=== PATIENT | female | born 1955 | race Caucasian/White ===

== ENCOUNTER 2020-07-20 15:58 | Observation (INO) | payer OTHER ==
[~2020-07-20] VITALS: Ht 152.4 cm; Wt 72.7 kg
[2020-07-20 17:15] VITALS: BP 152/87
[2020-07-20] MEDS ORDERED: CLONAZEPAM 0.50.5 M1 PO (19:23)
--- NOTE | 2020-07-20 19:38 | NUR ---
ASSUMED CARE OF PT AT APPROX 1515 FROM [facility] D/T NSTEMI. ADMISSION COMPLETE. PT A&OX4, NO COMPLAINTS OF PAIN. ORDERS RECEIVED AND IMPLEMENTED. REPORTED OFF TO NIGHT NURSE.
[2020-07-20 20:05] VITALS: BP 188/106
[2020-07-20] MEDS ORDERED: PROAIR HFA8.5 GM INH (22:36)
[2020-07-20] MEDS ORDERED: ADVAIR 250-501 EACH INH (22:37)
[2020-07-20] MEDS ORDERED: CHILDREN'S ZYRT10 M1 PO (22:40)
[2020-07-20] MEDS ORDERED: ADULT ASPIRIN R81 MG PO (22:40)
[2020-07-20] MEDS ORDERED: CATAPRES-TTS 11 EACH TRANSDERM (22:43)
[2020-07-20] MEDS ORDERED: GABAPENTIN800 M1 PO (22:45)
[2020-07-20] MEDS ORDERED: CLONIDINE HCL0.1 MG PO (22:45)
[2020-07-20] MEDS ORDERED: LEVO-T25 MCG PO (22:46)
[2020-07-20] MEDS ORDERED: LISINOPRIL20 MG PO (22:47)
[2020-07-20] MEDS ORDERED: MAGNESIUM250 M1 PO (22:50)
[2020-07-20] MEDS ORDERED: METOPROLOL SUCC25 M1 PO (22:52)
[2020-07-20] MEDS ORDERED: CRESTOR40 MG PO (22:54)
[2020-07-20] MEDS ORDERED: PROCHLORPERAZINE5 M2 PO (22:54)
[2020-07-20] MEDS ORDERED: ZANAFLEX4 M1 PO (22:55)
[2020-07-20] MEDS ORDERED: ULTRAM50 MG PO (22:56)
[2020-07-20] MEDS ORDERED: TRIAMCINOLONE A80 G2 TOP (23:02)
[2020-07-20] MEDS ORDERED: VALACYCLOVIR1000 MG PO (23:04)
[2020-07-20] MEDS ORDERED: ZYRTEC10 M5 PO (23:06)
[2020-07-20 23:17] VITALS: BP 129/87
[2020-07-21] VITALS (15 sets, daily range): BP systolic 122–158; BP diastolic 70–91
--- NOTE | 2020-07-21 01:16 | NUR ---
[address] KAM. ORDERS RECIEVED. STAT EKG ORDERED AND TROPONIN DRAWN. REVIEW HISTORY WITH DRHelen 2019 DR KAM CALLED TO CHECK ON TROP. INFORMED OF RESULTS AND ELEVATED BP 188/106. REVIEWED MEDICATIONS WITH DR. KAM. ORDERS RECIEVED. 0015 BP NOW 129/87. PEREZ COLUNGA NOTIFIED OF HOME MED LIST AND HISTORY. SHE WILL REVIEW MEDICATION. PATIENT SLEEPING WITHOUT COMPLAINTS AT THIS TIME. DENIES HAVING SYNCOPE.
[2020-07-21 05:51] LABS: HEMATOCRIT 38.3 % (37.0-47.0); HEMOGLOBIN 13.2 gm/dL (12.0-15.0); MCH 31.4 pg (26.0-34.0); MCHC 34.4 g/dL (28.0-37.0); MCV 91.4 fL (80.0-100.0); RBC 4.19 mil/uL (4.20-5.00); RDW 13.2 % (10.5-14.5); WBC 12.3 thou/uL (4.0-11.0)
[2020-07-21 06:15] LABS: CALCIUM 8.9 mg/dL (8.5-10.1); CREATININE 1.1 mg/dL (0.6-1.0); POTASSIUM 3.3 mmol/L (3.5-5.1)
[2020-07-21 06:20] LABS: TROPONIN-I 3.41 ng/mL (<0.06)
--- NOTE | 2020-07-21 06:38 | NUR ---
SLEPT MOST OF SHIFT. DENIES COMPLAINTS OF DIZZINESS, CHEST PAIN OR SHORTNESS OF AIR. WORKING ON GOALS AND PLAN OF CARE FOR NOC. 0500 PATIENT HAS NOT VOIDED. ASSISTED UP TO BATHROOM WITHOUT DIZZINESS AND DID NOT VOID. BLADDER SCAN SHOWS 29ML IN BLADDER. NOTIFIED PEREZ UNIX ANALYST AND ORDERS FOR FLUID BOLUS GIVEN. STARTED FLUID BOLUS PAST CHECKING PATIENT DOES NOT HAVE A HISTORY OF CHF. CONTINUE TO ASSES CLOSELY.
--- NOTE | 2020-07-21 07:13 | EKG ---
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 : 1955 Requested By: Gregory Dove Order Number: [id number] MD: Mike Green Measurements Intervals [place] Rate: 79 P: 26 IL: 115 QRS: 22 QRSD: 81 T: 29 QT: 432 QTc: 496 Interpretive Statements Sinus rhythm Borderline short IL interval Abnormal R-wave progression, early transition Borderline prolonged QT interval No previous ECG available for comparison Electronically Signed On 07-21-2020 7:12:58 CDT by Mike Green [email or web address] <ELECTRONICALLY SIGNED> By: Mike Green MD, [facility] 07/21/20711 49 1950 Mike Green MD, FACC /EPI
[2020-07-21 07:48] LABS: INR 1.11
--- NOTE | 2020-07-21 08:00 | EKG ---
[place] [address] [facility] [address] ELECTROCARDIOGRAM REPORT Name: HECTOR ANDERSON Room #: 218-[facility].R.#: [id number] Admission: 07/20/20 Attend Phys: Uriel Monsalve MD Discharge: Date of : 59 Report #: [id number] 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 : 1955 Requested By: Gregory Dove Order Number: [id number] MD: Everett Abbott Measurements Intervals [place] Rate: 82 P: 41 OR: 130 QRS: 20 QRSD: 79 T: 32 QT: 408 QTc: 477 Interpretive Statements Sinus rhythm Borderline T abnormalities, anterior leads Compared to ECG 07/20/2020 19:50:35 T-wave abnormality now present Electronically Signed On 07-21-2020 8:00:29 CDT by Everett Abbott [email or web address] <ELECTRONICALLY SIGNED> By: Everett Abbott MD, [facility] 07/21/20 0800 Everett Abbott MD, [facility] /EPI
[2020-07-21 08:03] LABS: CHOLESTEROL 246 mg/dL (<200); HDL CHOLESTEROL 46 mg/dL (>40); LDL CHOLESTEROL 157 mg/dL (<100); TC:HDL 5.3 Ratio (Not establshd); TRIGLYCERIDE 218 mg/dL (<150); VLDL 44 mg/dL (<40)
--- NOTE | 2020-07-21 09:37 | 2DMMODE ---
[facility] [place] [place] [address] 2 D/M-MODE ECHOCARDIOGRAM Name: HECTOR ANDERSON Room #: 218-[address] [facility] M.R.#: [id number] Admission: 07/20/20 Attend Phys: Uriel Monsalve MD Discharge: Date of : 59 Report #: [id number] THIS REPORT FOR: cc: LB - No family physician/PCP LB - No family physician/PCP Everett Abbott MD [facility] ~ APPROVED REPORT Study performed: 07/21/2020 07:28:20 EXAM: Comprehensive 2D, Doppler, and color-flow Echocardiogram Patient Location: Bedside Room #: 218 Status: routine BSA: 1.70 HR: 75 bpm BP: 122/83 mmHg Rhythm: NSR Other Information Study Quality: Adequate Indications Chest Pain Hx: Syncope, HTN urgency, HLP 2D Dimensions RVDd: 24.38 mm IVSd: 10.26 (7-11mm) LVOT Diam: 20.09 (18-24mm) LVDd: 47.60 mm PWd: 9.58 (7-11mm) Ascending Ao: 34.07 (22-36mm) LVDs: 23.37 (25-40mm) Left Atrium: 29.96 (27-40mm) Aortic Root: 33.53 mm Volumes Left Atrial Volume (Systole) Single Plane 4CH: 27.66 mL Single Plane 2CH: 39.09 mL LA ESV Index: 20.00 mL/m2 Aortic Valve AoV Peak Adeel.: 1.56 m/s AO Peak Gr.: 9.67 mmHg LVOT Max P.18 mmHg LVOT Max V: 1.24 m/s [facility] [address] [address] 2 D/M-MODE ECHOCARDIOGRAM Name: HECTOR ANDERSON Room #: 218-P [facility] IN [facility]#: [id number] Admission: 07/20/20 Attend Phys: Uriel Monsalve, Discharge: Date of : 59 Report #: [id number] CATHY Vmax: 2.53 cm2 Mitral Valve E/A Ratio: 0.6 MV Decel. Time: 338.04 ms MV E Max Adeel.: 0.64 m/s MV A Adeel.: 1.05 m/s MV PHT: 98.03 ms IVRT: 92.27 ms Pulmonary Valve PV Peak Adeel.: 0.90 m/s PV Peak Gr.: 3.27 mmHg Pulmonary Vein P Vein S: 0.69 m/s P Vein A: 0.35 m/s P Vein D: 0.40 m/s P Vein A Dur.: 124.6 msec P Vein S/D Ratio: 1.73 Tricuspid Valve TR Peak Adeel.: 2.38 m/s RAP Estimate: 5.00 mmHg TR Peak Gr.: 22.64 mmHg PA Pressure: 28.00 mmHg Left Ventricle The left ventricle is normal size. There is normal LV segmental wall motion. There is normal left ventricular wall thickness. The left ventricular systolic function is normal. LVEF is 65-70%. Mild diastolic dysfunction Right Ventricle The right ventricle is normal size. The right ventricular systolic function is normal. Atria The left atrium size is normal. The right atrium size is normal. Aortic Valve The aortic valve is not well visualized. Trace aortic regurgitation. There is no aortic valvular stenosis. Mitral Valve The mitral valve is normal in structure. There is no mitral valve regurgitation noted. No evidence of mitral valve stenosis. Tricuspid Valve [facility] [address] [address] 2 D/M-MODE ECHOCARDIOGRAM Name: KHLOE ANDERSONSA Andino Room #: 218-P [facility] IN [facility].#: [id number] Admission: 07/20/20 Attend Phys: Uriel Monsalve, Discharge: Date of : 59 Report #: [id number] The tricuspid valve is normal in structure. Trace tricuspid regurgitation. Estimated PAP 25-30mmHg Pulmonic Valve The pulmonary valve is normal in structure. There is no pulmonic valvular regurgitation. Great Vessels The aortic root is normal in size. The ascending aorta is normal in size. IVC is normal in size and collapses >50% with inspiration. Pericardium There is no pericardial effusion. <Conclusion> The left ventricular systolic function is normal. There is normal LV segmental wall motion. LVEF is 65-70%. Mild diastolic dysfunction The aortic valve is not well visualized. Trace aortic regurgitation, no stenosis. The mitral valve is normal in structure. No mitral valve regurgitation. Trace tricuspid regurgitation. Estimated pulmonary artery pressure of 25-30mmHg There is no pericardial effusion. <ELECTRONICALLY SIGNED> By: Everett Abbott MD, FACC 07/21/20936 6 6 Everett Abbott MD, FACC /INF
--- NOTE | 2020-07-21 12:54 | CATHLAB ---
[facility] [address] [facility] [address] INVASIVE PROCEDURE REPORT Name: HECTOR ANDERSON Room #: 218-P ADM Renee Sexton#: [id number] Admission: 07/20/20 Attend Phys: Uriel Monsalve MD Discharge: Date of : 59 Report #: [id number] THIS REPORT FOR: cc: FAM - No family physician/PCP FAM - No family physician/PCP Gregory Dove MD [facility] ~ APPROVED REPORT Study performed: 07/21/2020 10:38:44 Patient Details Patient Status: In-Patient Room #: 218 The patient is a 65 year-old female Event Personnel Gregory Dove Audiology Doctor, Bryan Shen RTR ScrubDiana Jordan RTR Monitor, Rosie Hebert RN communications department head Performed Art Access - R femoral artery* 47065 Initial Mod Sed Same Phys/QHP Gr5y [id number] 31091 Mod Sed Same Phys/QHP Ea [id number] Hemostasis w/ Mynx Abdominal Aortography [id number] Left Heart Cath w/or w/o Coronaries [id number] [facility] Indication Palpitations, Syncope, Chest pain Procedure Narrative The Right Groin^ was infiltrated with 1% Lidocaine subcutaneous anesthesia. A PINNACLE 6FR Sheath #[id number] sheath was inserted into the RFA^. Coronary angiography was performed using coronary diagnostic catheters. The right coronary system was accessed and visualized with a JR4 catheter. The left coronary system was accessed and visualized with a JL4 catheter. The left ventricle was accessed and visualized with a PIGTAIL catheter. Left ventriculogram was performed in 30 degree projection. An aortogram of the abdominal aorta was performed. Closure device was deployed with a 6 Fr MYNXGRIP 6/7F #[id number]. Hemostasis was obtained with manual pressure following sheath removal without any complications. The patient tolerated the procedure well and there were no complications associated with the procedure. There was no hematoma. Intraoperative Conscious Sedation [facility] [address] [place] [address] INVASIVE PROCEDURE REPORT Name: HECTOR ANDERSON Room #: 218-P [facility] IN ..#: [id number] Admission: 07/20/20 Attend Phys: Uriel Monsalve, Discharge: Date of : 59 Report #: [id number] Sedation start time: 1131 Case end Time: 1201 Fentanyl 50 mcg Versed 0.5 mg Fluoro Time: 1.40 minutes Dose: DAP 1956.50 cGycm2 259 mGy Contrast Type and Amount: Visipaque 100 ml Hemodynamics The aortic pressure is 170/87 mmHg with a mean of 112 mmHg. The left ventricular pressure is 191/3 mmHg with a mean of mmHg. The left ventricular end diastolic pressure is 12 mmHg. Conclusion #1. Hyperdynamic LV function EF 65 to 70%. #2 abdominal aortogram is widely patent there is no evidence of aneurysm or significant stenosis. Renal arteries appear to be patent patient has significant refractory hypertension does not appear to be on the basis of renal artery stenosis. #3 coronary anatomy shows wide patency there is no occlusive disease noted. A short left main a right dominant system. LAD and circumflex are widely patent. #4 dominant right coronary artery widely patent. Recommendations and plan: Continue aggressive risk factor modification. Blood pressure control is paramount here. Significantly hypertensive at initiation of this procedure. Responded to IV hydralazine. Etiology of troponin elevation is unclear. <ELECTRONICALLY SIGNED> By: Gregory Dove MD, FACC 07/21/20 1254 1254 1254 Gregory Dove MD, FACC /INF
[2020-07-21] MEDS ORDERED: NORVASC5 MG PO (13:01)
--- NOTE | 2020-07-21 16:21 | NUR ---
ASSUMED CARE OF PT AT SHIFT CHANGE. ASSESSMENTS CHARTED. MEDS GIVEN PER JUN. PT A&OX4, NO C/O PAIN. CATH PROCEDURE COMPLETE, NO INTERVENTIONS. R GROIN SITE CDI, NO BRUISING OR HEMATOMA. BEDREST COMPLETE. NO C/O OF DISTRESS OR DISCOMFORT. DISCHARGE ORDERS AND INSTRUCTIONS COMPLETE. IV AND TELE DC'D. PT TAKEN TO ENTRANCE VIA WHEELCHAIR TO WAITING IN CAR.
== END 2020-07-21 16:16 | disposition home or self-care (01) ==
LOC: 2N 15:58
PROVIDERS: Hospitalist; Nurse Practitioner Adult Health; ADMIT Internal Medicine; ATTEND Internal Medicine
DX: I10 Essential (primary) hypertension (principal); R55 Syncope and collapse; E03.9 Hypothyroidism, unspecified; E78.00 Pure hypercholesterolemia, unspecified; G89.29 Other chronic pain; R79.89 Other specified abnormal findings of blood chemistry; I73.00 Raynaud's syndrome without gangrene; Z79.82 Long term (current) use of aspirin; Z79.899 Other long term (current) drug therapy; Z87.891 Personal history of nicotine dependence

== ENCOUNTER 2020-10-01 15:40 | Inpatient (IN) | payer OTHER ==
[2020-10-01] VITALS (18 sets, daily range): BP systolic 130–172; BP diastolic 78–97
[~2020-10-01] VITALS: Ht 157.5 cm; Wt 79.4 kg
--- NOTE | ~2020-10-01 | HC ---
[facility] [place] [address] CONSULTATION Name: HECTOR ANDERSON Room #: [facility]-P ADM IN M.R.#: [id number] Admission: 10/01/20 Attend Phys: Uriel Monsalve MD Discharge: Date of : 59 Report #: [id number] THIS REPORT FOR: cc: LB Duvall family physician/PCP LB Duvall family physician/PCP Joan Chang MD ~ DOC #: [id number] Joan Chang MD REASON FOR CONSULTATION: Elevated creatinine. HISTORY OF PRESENT ILLNESS: A 65-year-old who was transferred from [facility] because of nausea, vomiting and diarrhea. She reported no symptoms for the last week or so. She was prescribed some Cipro, Flagyl, nausea medications. She continued to have those issues and reported to the Emergency Room and was found to have an elevated creatinine. She was never told that she had kidney problems before. Creatinine at the other facility was in the 2 range; however, creatinine this morning showed that her renal function has improved with IV hydration. She is known to have prediabetes. She is also known to have hypertension and her blood pressure on arrival to our facility was extremely elevated. I was consulted to manage her acute kidney injury. She denies any prior knowledge of kidney disease. We do not have any previous values on her when it comes to her kidney function. PAST MEDICAL HISTORY: 1. Hypertension. 2. Hypothyroidism. 3. Hyperlipidemia. 4. Anxiety. 5. Raynaud's phenomena. 6. Chronic back pain. PAST SURGICAL HISTORY: 1. Bilateral carpal tunnel. 2. . 3. Hysterectomy. 4. Appendectomy. SOCIAL HISTORY: She is a former smoker. No drug or alcohol abuse. FAMILY HISTORY: Hypertension. ALLERGIES: None. MEDICATIONS: 1. ____. [facility] [address] [place] [address] CONSULTATION Name: KHLOE ANDERSONSA Andino Room #: 241-P [facility]#: [id number] Admission: 10/01/20 Attend Phys: Uriel Monsalve MD Discharge: Date of : 59 Report #: [id number] 2. Metoprolol. 3. Amlodipine. 4. Lisinopril. 5. Levothyroxine. REVIEW OF SYSTEMS: GENERAL: No fever or chills. CARDIOVASCULAR: No chest pain or palpitation. PULMONARY: No cough or hemoptysis. GASTROINTESTINAL: Significant for nausea, vomiting and diarrhea. GENITOURINARY: No frequency, no urgency. NEUROLOGIC: No headache, no dizziness, no syncope. PHYSICAL EXAMINATION: GENERAL: The patient is alert, oriented, in no apparent distress. VITAL SIGNS: Blood pressure is 120/55. Temperature 37.2. HEAD AND NECK: No jugular venous distention, no bruit, no thyromegaly. CHEST: No crackles. CARDIOVASCULAR: Regular with no rub detected. ABDOMEN: Soft, nontender. EXTREMITIES: Lower extremities, no edema. LABORATORY DATA: Laboratory values reveal the following: Sodium is 134, potassium is 3.2, BUN is 23, creatinine is 1.1, magnesium is 1.6. ASSESSMENT, IMPRESSION, PLAN: 1. Acute kidney injury due to dehydration, resolved. 2. Ongoing gastrointestinal illness. 3. The patient's creatinine is down to 1.1, which is very close to her normal level. 4. Replace potassium. 5. Gastrointestinal workup. 6. Avoid nephrotoxins. 7. Follow electrolytes. 8. ____ recommendations. Joan Chang MD AIA/RINA/SALIMA By: 8 Joan Chang MD /nt
[~2020-10-01 15:40] MED LIST: ADULT ASPIRIN R81 MG PO; ADVAIR 250-501 EACH INH; CATAPRES-TTS 11 EACH TRANSDERM; CHILDREN'S ZYRT10 M1 PO; CLONAZEPAM 0.50.5 M1 PO; CLONIDINE HCL0.1 MG PO; CRESTOR40 MG PO; GABAPENTIN800 M1 PO; LEVO-T25 MCG PO; LISINOPRIL20 MG PO; MAGNESIUM250 M1 PO; METOPROLOL SUCC25 M1 PO; NORVASC5 MG PO; PROAIR HFA8.5 GM INH; PROCHLORPERAZINE5 M2 PO; TRIAMCINOLONE A80 G2 TOP; ULTRAM50 MG PO; VALACYCLOVIR1000 MG PO; ZANAFLEX4 M1 PO; ZYRTEC10 M5 PO
[2020-10-01 22:42] LABS: HEMATOCRIT 38.6 % (37.0-47.0); HEMOGLOBIN 13.2 gm/dL (12.0-15.0); MCH 31.6 pg (26.0-34.0); MCHC 34.2 g/dL (28.0-37.0); MCV 92.3 fL (80.0-100.0); RBC 4.19 mil/uL (4.20-5.00); WBC 14.5 thou/uL (4.0-11.0)
[2020-10-01 22:56] LABS: ANION GAP 15 mmol/L (7-16); BUN 23 mg/dL (7-18); CALCIUM 9.5 mg/dL (8.5-10.1); CHLORIDE 95 mmol/L (98-107); CO2 24 mmol/L (21-32); CREATININE 1.1 mg/dL (0.6-1.0); GLUCOSE 157 mg/dL (74-106); MAGNESIUM 1.6 mg/dL (1.8-2.4); POTASSIUM 3.2 mmol/L (3.5-5.1); SODIUM 134 mmol/L (136-145); TROPONIN-I <0.06 ng/mL (<0.06)
--- NOTE | 2020-10-01 23:43 | NUR ---
PATIENT ARRIVED AT THE UNIT AT APPROX 1900. PT A/OX4. DENIES PAIN. C/O N/V. MEDS GIVEN ORDERED. AFEBRILE. HYPERTENSIVE OTHERWISE VSS. ON NICARDIPINE GTT. ATTACHED TO THE MONITOR. ON RA WITH SATS>90%. PROVIDER NOTIFIED OF PT ARRIVAL. VISITOR IN THE ROOM. DENIES NEEDS WILL KEEP MONITORING
[2020-10-02] VITALS (88 sets, daily range): BP systolic 79–171; BP diastolic 34–101
--- NOTE | 2020-10-02 09:39 | NUR ---
0930- PT'S FIANCE ARRIVED.
--- NOTE | 2020-10-02 11:37 | NUR ---
VAT CONSULTED FOR PIV'S. VESSELS DEEP DISCUSSED MIDLINE BENEFITS AND RISK WITH PT, VERBALLY GAVE CONSENT. KIYA BASILIC ATTEMPTED BUT UNABLE TO PASS GUIDEWIRE. KIYA BRACHIAL WIDELY PATENT WITH USG. 4FR POWER MIDLINE TRIMMED TO 10CM. UNABLE TO INSERT MORE THAN 7, SO EXTERNAL 3CM FLUSHES EASILY NO PAIN OR SWELLING, INTERMITTENT BR. RELEASED FOR IMMEDIATE USE PER PROTOCOL TO [address]
--- NOTE | 2020-10-02 12:29 | NUR ---
PT STATED TO PHYSICIAN AND RN THAT SHE HAS HAD CONSTANT HEADACHE FOR 3 DAYS WITH NO RELIEF. PT STATED TO RN THAT SHE NEEDED MEDICATION TO HELP CALM HER NERVES. PT STATED TO RN THAT SHE WAS VERY NAUSEATED. AFTER DISCUSSING THIS WITH PHYSICIAN, NEW ORDERS RECEIVED FOR IV PAIN MEDICATION AND PO ANTI ANXIETY MEDICATION. PT'S HOME MEDS WERE ALSO RESTARTED. PO HOME BLOOD PRESSURE MEDICATIONS HAVE BEEN RESTARTED AND GIVEN AND PT IS BEING WEANED OFF OF IV CARDENE PER DR REQUEST. PT GIVEN PO ANTI ANXIETY MEDICATION AND IV PAIN MEDICATION. WILL CLOSELY MONITOR PT FOR RELIEF OF PAIN AND ANXIETY. WILL CLOSLY MONITOR BLOOD PRESSURE AND WILL TITRATE IV CARDENE APPROPRIATE. PT'S FIANCE REMAINS AT BEDSIDE. PT HAS REFUSED LUNCH INSULIN. PT HAS REFUSED BREAKFAST AND LUNCH TRAY STATING NAUSEA. IV ANTI NAUSEA MEDICATION HAS BEEN GIVEN.
--- NOTE | 2020-10-02 19:30 | NUR ---
PT'S BLOOD PRESSURE VERY LABILE. THIS RN TITRATED CARDENE BETWEEN 2.5MG-5MG MOST OF SHIFT. AT 1708 PT'S BLOOD PRESSURE 93/50 AND CARDENE WAS TURNED OFF. PT REMAINED NAUSEATED THIS SHIFT AND WAS TREATED FOR NAUSEA X3. PT REFUSED BREAKFAST AND LUNCH DUE TO THE NAUSEA BUT DID DRINK 1 PARTIAL [place]FT DRINK THIS EVENING WELL A FEW BITES OF DINNER. REPORT GIVEN TO ONCOMING SHIFT RN.
[2020-10-03] VITALS (49 sets, daily range): BP systolic 72–182; BP diastolic 29–97
[2020-10-03 02:05] LABS: GLYCOHEMOGLOBIN (HGB A1C) 5.5 % (4.8-5.6)
[2020-10-03 04:54] LABS: HEMATOCRIT 34.6 % (37.0-47.0); HEMOGLOBIN 11.8 gm/dL (12.0-15.0); MCH 31.7 pg (26.0-34.0); MCHC 34.2 g/dL (28.0-37.0); MCV 92.7 fL (80.0-100.0); RBC 3.73 mil/uL (4.20-5.00); RDW 13.1 % (10.5-14.5); WBC 9.4 thou/uL (4.0-11.0)
[2020-10-03 05:08] LABS: CALCIUM 7.9 mg/dL (8.5-10.1); PHOSPHORUS 3.2 mg/dL (2.5-4.9); POTASSIUM 3.1 mmol/L (3.5-5.1)
--- NOTE | 2020-10-03 10:19 | NUR ---
PT IS SHOWING NO SYMPTOMS OF NAUSEA THIS MORNING, STATED THAT SHE WAS HUNGRY AND ABLE TO FEED SELF AFTER BEING SAT UP, HAS BEEN TIRED MOSTLY TO THIS POINT, POTASSIUM WAS LOW THIS MORNING WELL MAGNESIUM, PT IS BEING REPLACED. BLOOD PRESSURE HAS BEEN LABILE, MD WANTS PT TO STABILIZE BP PRIOR TO TRANSFER. SOME MEDICATIONS HELD BY MD WHICH MAY HAVE IMPACT ON BP
--- NOTE | 2020-10-03 11:40 | NUR ---
Chart review. discussed during los and am rounds. Unable to visit with [facility] rt bedside staff in her room.
[2020-10-03 11:49] LABS: ALBUMIN 2.8 g/dL (3.4-5.0); DIRECT BILIRUBIN < 0.1 mg/dL (<0.1-0.2); SGOT 10 U/L (15-37); SGPT 8 U/L (14-59); TOTAL BILIRUBIN 0.2 mg/dL (0.2-1.0); TOTAL PROTEIN 5.7 g/dL (6.4-8.2)
[2020-10-03 13:43] LABS: URINE BILIRUBIN NEGATIVE (Negative); URINE BLOOD NEGATIVE (Negative); URINE CLARITY CLEAR; URINE COLOR YELLOW; URINE GLUCOSE-RANDOM* NEGATIVE (Negative); URINE KETONES 1+ (Negative); URINE LEUKOCYTES-REFLEX NEGATIVE (Negative); URINE NITRITE-REFLEX NEGATIVE (Negative); URINE PROTEIN (DIPSTICK) NEGATIVE (Negative); URINE SPECIFIC GRAVITY >= 1.030 (1.005-1.035); URINE UROBILINOGEN 0.2 E.U./dl (0.2-1.0)
[2020-10-04] VITALS (30 sets, daily range): BP systolic 89–187; BP diastolic 36–110
[2020-10-04 03:01] LABS: HEMATOCRIT 36.7 % (37.0-47.0); HEMOGLOBIN 12.5 gm/dL (12.0-15.0); MCH 31.2 pg (26.0-34.0); MCHC 34.2 g/dL (28.0-37.0); MCV 91.3 fL (80.0-100.0); RBC 4.02 mil/uL (4.20-5.00); RDW 12.9 % (10.5-14.5); WBC 11.8 thou/uL (4.0-11.0)
[2020-10-04 03:37] LABS: ALBUMIN 3.1 g/dL (3.4-5.0); CALCIUM 7.8 mg/dL (8.5-10.1); CREATININE 0.6 mg/dL (0.6-1.0); PHOSPHORUS 2.4 mg/dL (2.5-4.9); POTASSIUM 3.5 mmol/L (3.5-5.1)
--- NOTE | 2020-10-04 08:02 | HC ---
[facility] [address] CONSULTATION Name: HECTOR ANDERSON Room #: [facility]- ADM IN M.R.#: [id number] Admission: 10/01/20 Attend Phys: Constance Herrera MD Discharge: Date of : 59 Report #: [id number] THIS REPORT FOR: cc: LB - No family physician/PCP LB - No family physician/PCP Jeff Taylor MD ~ DOC #: [id number] Jeff Taylor MD DATE OF SERVICE: 10/03/2020 INFECTIOUS DISEASE CONSULTATION ATTENDING PHYSICIAN: Dr. Herrera. REASON FOR EVALUATION: Colitis complicated by systemic signs and symptoms including hemodynamic instability. HISTORY OF PRESENT ILLNESS: Chart was reviewed. The patient examined. A 65-year-old with extensive medical history given her age, including hypertension, chronic pain syndrome, who was admitted from an outside hospital with nausea, emesis and diarrhea for the past several days. She had been evaluated day prior to her multiple admissions and felt to have colitis. Empirically treated with symptomatic therapy, antiemetics as well as Cipro and Flagyl. Imaging suggests involvement of the cecum and ascending colon. Due to requirement for evaluation, she was subsequently admitted and then transferred. Additional screening lab - white count was mildly elevated at 14.5. Lactic acid 0.8. She was found to be borderline hypotensive. She was placed in intensive care unit, started on Cardene which has been weaned off. She is generally lucid at this point. She denies any abdominal pain. She noted a diarrheal stool earlier today, is notable. She is not aware of any history of C. diff nor does she believe. Stool has been sent thus far, although the C. diff has been pending. Was empirically started on therapy with ciprofloxacin and Flagyl. Additionally denies any pulmonary or gastrointestinal related complaints at present. ALLERGIES: None known. MEDICATIONS: Currently include magnesium, aspirin, levothyroxine, atorvastatin, gabapentin, p.r.n. analgesics, antiemetics, anxiolytics, metoprolol, lisinopril, amlodipine, tizanidine, pantoprazole, metronidazole, Cipro. PAST MEDICAL HISTORY: As described above, hypertension, hypothyroidism, hypercholesterolemia, chronic anemia, anxiety, depression, migraines, Raynaud's, chronic back pain, prediabetes. SOCIAL HISTORY: Former smoker, occasional illicit drug use with marijuana. [address] [address] CONSULTATION Name: HECTOR ANDERSON Room #: [address] [place] [address] IN M.R.#: [id number] Admission: 10/01/20 Attend Phys: Constance Herrera MD Discharge: Date of : 59 Report #: [id number] Occasional alcohol use. FAMILY HISTORY: Noncontributory. REVIEW OF SYSTEMS: Otherwise, unremarkable,10-point review of systems. PHYSICAL EXAMINATION: GENERAL: She appears chronically ill and undernourished. She is pleasant, cooperative. She is in mild distress. She is lucid. VITAL SIGNS: Temperature 98.2, pulse 94, respirations 24, blood pressure 97/57. SKIN: Warm, dry, no rashes. HEENT: Normocephalic. Extraocular muscles intact. NECK: Supple. LUNGS: Diminished breath sounds. HEART: Regular, occasional ectopy; I do not appreciate murmur. ABDOMEN: Soft. There maybe some tenderness in the left lower quadrant, not overtly with peritoneal signs. GENITOURINARY AND RECTAL: Deferred. LABORATORY DATA: Most recent electrolytes, sodium 137, potassium 3.1, chloride 102, bicarbonate 23, anion gap of 12, BUN and creatinine 20 and 1.0, glucose of 92, albumin of 3.0, estimated GFR of 56. CBC now white count of 9.4, H and H 11.8 and 34.6, platelets of 264. Hemoglobin A1c of 5.5. TSH 0.805. Lactic acid 0.8. ASSESSMENT AND PLAN: Colitis by history, based on the available records, I did not see an actual report of the CT, appeared to be right-sided, although it cannot entirely exclude C. difficile. We will check those studies as able. For this reason, we will continue empiric therapy, white count has come down. She has no clinical evidence of peritonitis; nor does she has abdominal pain. She is borderline hypotensive. Blood cultures have been ordered. We will check chest x-ray and urinalysis as well as liver function test to exclude another issue at this point. I do not see any particular focus of pyogenic infection as noted above. She has received medications that certainly could contribute to hypotension as well to minimize her exposure ____. MD SREEDHAR Melgar/NHAN/DIMITRIOS <ELECTRONICALLY SIGNED> By: Jeff Taylor MD 10/04/20801 5 46 Jeff Taylor MD /nt
--- NOTE | 2020-10-04 09:15 | NUR ---
RN CAME ONTO SHIFT, AROUND 0640 COMPAZINE IV WAS GIVEN, PT STILL C/O NAUSEA, PO WAS GIVEN WITH ALL PO HTN MEDS, PO HTN MEDS WERE RESTARTED LAST NIGHT. PT IS HYPERTENSIVE STILL, THE BOUTS OF HYPOTENSION WAS RELATED TO FENTANYL, CURRENTLY 148/85 HR 87. PT ALSO C/O R ARM PAIN, PIV REMOVED, PERSISTING PAIN, POSSIBLY RELATING TO MIDLINE ACCESS, NOTIFYING IV TEAM. METRONIDAZOLE DC'D BY FOR POSSIBLE ADVERSE EFFECT OF NAUSEA
--- NOTE | 2020-10-04 10:28 | NUR ---
RUASLML LEAKING AND VESSEL NOT COMPRESSIBLE ALONG CATH ROUTE. REQUESTED AN US TO RULE OUT A DVT, PLACED A 22G 2.5 INCH PIV IN THE LT ARM FOR ABX AND IVF. PT TO MOVE OUT OF ICU AND FLAGYL HAS BEEN DC'D.
[2020-10-05 05:00] VITALS: BP 108/80
[2020-10-05 05:17] LABS: HEMATOCRIT 34.5 % (37.0-47.0); HEMOGLOBIN 11.9 gm/dL (12.0-15.0); MCH 31.9 pg (26.0-34.0); MCHC 34.4 g/dL (28.0-37.0); MCV 92.7 fL (80.0-100.0); RBC 3.72 mil/uL (4.20-5.00); RDW 12.7 % (10.5-14.5); WBC 8.9 thou/uL (4.0-11.0)
[2020-10-05 06:19] LABS: CREATININE 0.8 mg/dL (0.6-1.0); PHOSPHORUS 3.3 mg/dL (2.5-4.9); POTASSIUM 3.1 mmol/L (3.5-5.1)
--- NOTE | 2020-10-05 08:27 | NUR ---
PROGRESS PT CDIFF TEST WAS NEGATIVE PT DENIES ABDOMINAL PAIN AND LOOSE STOOLS IVF'S INFUSING ORDERED, IV ANTIBIOTICS CONTINUE VOIDING QS TOLERATING DIET TELE INTACT CONTINUE POC.
[2020-10-05 09:07] VITALS: BP 141/85
[2020-10-05 11:36] VITALS: BP 147/77
[2020-10-05 16:46] VITALS: BP 152/88
[2020-10-05 19:34] VITALS: BP 155/94
--- NOTE | 2020-10-05 23:19 | NUR ---
PT PROGRESSING TOWARDS D/C GOALS. VSS AFEBRILE. REFUSED SOME OF HER MEDS TONIGHT DUE TO NAUSEA. K 3.1 PO KCL CHANGED TO IVPB SINCE PT WAS REFUSING PO. IV KCL RATE SLOWED DUE TO IT WAS IRRATATING HER VEIN. PT STATED IT HAS STOPPED BURNING NOW. DENIED NEED FOR PAIN MEDS. REFUSED SNACK NAUSEA HAS STOPPED NOW. PT SAY SHE THINKS IT WAS THE CHICKEN AT [employer] THAT MADE HER NAUSEOUS.
[2020-10-06 03:27] VITALS: BP 126/82
[2020-10-06 05:30] LABS: HEMATOCRIT 36.5 % (37.0-47.0); HEMOGLOBIN 12.5 gm/dL (12.0-15.0); MCH 31.4 pg (26.0-34.0); MCHC 34.2 g/dL (28.0-37.0); MCV 91.7 fL (80.0-100.0); RBC 3.98 mil/uL (4.20-5.00); RDW 12.7 % (10.5-14.5); WBC 10.4 thou/uL (4.0-11.0)
[2020-10-06 06:15] LABS: ALBUMIN 3.3 g/dL (3.4-5.0); CALCIUM 8.6 mg/dL (8.5-10.1); CREATININE 0.6 mg/dL (0.6-1.0); PHOSPHORUS 2.7 mg/dL (2.5-4.9); POTASSIUM 3.5 mmol/L (3.5-5.1)
--- NOTE | 2020-10-06 06:45 | NUR ---
PT RESTING BETTER AFTER ZOFRAN GIVEN FOR NAUSEA AND ATIVAN GIVEN PO FOR C/O ANXIETY. VSS AFEBRILE THIS AM. PV NS INFUSING AND POTASSIUM ALMOST FINISHED.
[2020-10-06] MEDS ORDERED: PROTONIX40 M2 PO (12:40)
[2020-10-06 12:59] VITALS: BP 150/80
[2020-10-06] MEDS ORDERED: ZOFRAN ODT4 MG DISSOLVE (13:15)
--- NOTE | 2020-10-06 13:30 | NUR ---
PATIENT DC ORDERS RECEIVED. DISCUSSED PATIENT DC PAPERWORK WITH PATIENT. EDUCATION PROVIDED TO PATIENT ABOUT DVT AND NEW MEDICATIONS. PATIENT AND VERBALIZED UNDERSTANDING ABOUT MEDICATION AND DVT. PATIENT DC TO HOME VIA PRIVATE VEHICLE. IV DC'D, TELEMETRY REMOVED. ALL BELONGINGS SENT WITH PATIENT.
[2020-10-06] MEDS ORDERED: ELIQUIS5 M1 PO (13:32)
== END 2020-10-06 13:30 | disposition home or self-care (01) | DRG 872 ==
LOC: ICU 15:40 → 3W 10-04 18:41
PROVIDERS: Hospitalist; Nurse Practitioner Family; Specialist; ADMIT Internal Medicine; ATTEND Internal Medicine
PROC: 05H933Z Insertion of Infusion Device into Right Brachial Vein, Percutaneous Approach (ICD-10-PCS; principal; 2020-10-02)
DX: A41.9 Sepsis, unspecified organism (principal); N17.9 Acute kidney failure, unspecified; I16.1 Hypertensive emergency; N39.0 Urinary tract infection, site not specified; I82.621 Acute embolism and thrombosis of deep veins of right upper extremity; I10 Essential (primary) hypertension; E03.9 Hypothyroidism, unspecified; E78.5 Hyperlipidemia, unspecified; F41.9 Anxiety disorder, unspecified; G89.29 Other chronic pain; M54.9 Dorsalgia, unspecified; E86.0 Dehydration; E78.00 Pure hypercholesterolemia, unspecified; F32.9 Major depressive disorder, single episode, unspecified; G43.909 Migraine, unspecified, not intractable, without status migrainosus; K52.9 Noninfective gastroenteritis and colitis, unspecified; I25.10 Atherosclerotic heart disease of native coronary artery without angina pectoris; R73.03 Prediabetes; D64.9 Anemia, unspecified; I73.00 Raynaud's syndrome without gangrene; B02.9 Zoster without complications; E87.6 Hypokalemia; Z90.710 Acquired absence of both cervix and uterus; Z90.49 Acquired absence of other specified parts of digestive tract; Z87.891 Personal history of nicotine dependence; Z82.49 Family history of ischemic heart disease and other diseases of the circulatory system; I25.2 Old myocardial infarction; Z79.82 Long term (current) use of aspirin
CPT/HCPCS: 10078; 10879; 27000